=== PATIENT | female | born 1960 | race Native Hawaiian/Other Pacific Islander ===

== ENCOUNTER 2017-05-09 10:11 | Outpatient (CLI) | payer OTHER | END 2017-05-09 22:17 | disposition home or self-care (01) | LOC: MAMMO 10:11 | DX: Z12.31 Encounter for screening mammogram for malignant neoplasm of breast (principal) ==

== ENCOUNTER 2017-11-25 03:38 | Emergency (ER) | payer OTHER ==
[~2017-11-25] VITALS: Ht 160 cm; Wt 65.3 kg
[2017-11-25 03:45] VITALS: TEMP 97.3
[2017-11-25 04:16] LABS: PLATELET COUNT 348 K/uL (152-353)
[2017-11-25 04:26] LABS: POTASSIUM 4.2 mmol/L (3.6-5.2)
[2017-11-25 09:30] VITALS: BP 129/65
== END 2017-11-25 09:30 | disposition home or self-care (01) ==
LOC: ED 03:38
PROVIDERS: Family Medicine
DX: K59.00 Constipation, unspecified (principal)
CPT/HCPCS: 36415; 80053; 81000; 84550; 85027; 85379; 96360; 96361; 96374; 96375; 96376; 99284; J1885; J2175; J2405